=== PATIENT | male | born 1985 | race African-American/Black ===

== ENCOUNTER 2018-10-10 20:38 | Emergency (ER) | payer MEDICAID ==
[~2018-10-10] VITALS: Ht 182.9 cm; Wt 75.7 kg
[2018-10-10 23:43] VITALS: BP 119/73
== END 2018-10-11 01:23 | disposition home or self-care (01) ==
LOC: ER 20:38
DX: M20.002 Unspecified deformity of left finger(s) (principal)
CPT/HCPCS: 73130